=== PATIENT | female | born 1945 | race African-American/Black ===

== ENCOUNTER 2018-11-12 02:14 | Inpatient (IN) | payer BC, MEDICARE ==
[2018-11-12 04:18] LABS: Troponin I 0.084 ng/mL (< 0.028)
[2018-11-12] MEDS ORDERED: Ondansetron ODT 4 MG TAB SL PRN (05:23)
[2018-11-12] MEDS ORDERED: Ondansetron PF 4 MG/2 ML Vial IVP PRN (05:23)
[2018-11-12 06:10] VITALS: BMI 34.1
[2018-11-12 07:31] LABS: Troponin I 0.094 ng/mL (< 0.028)
[2018-11-12] MEDS ORDERED: Bisacodyl 10 MG SUPP PR PRN (09:01)
[2018-11-12] MEDS ORDERED: Acetaminophen 325 MG TAB PO PRN (09:01)
[2018-11-12] MEDS ORDERED: Furosemide 40 MG/4 ML VIAL SLOW IVP SCH (09:15)
--- NOTE | 2018-11-12 13:14 | HP ---
PRIMARY CARE PROVIDER: Chio Stallings at [facility]. CHIEF COMPLAINT: Shortness of breath. HISTORY OF PRESENT ILLNESS: Ms. Aaron is a pleasant 73-year-old lady, who was seen at [facility] on November 12, 2018. She was transferred from [place] [facility]. She reports that she has been feeling short of breath over the last few months. She reports orthopnea and paroxysmal nocturnal dyspnea. She also reports shortness of breath with exertion. She denies any chest pain. She denies any nausea or vomiting. She also reports lower extremity edema over the last 2 months. She reports that she checks her blood pressure at home. She found that it was high, 233/107 yesterday. Therefore, she presented to the emergency room at [place]. There, she was diagnosed with congestive heart failure/volume overload and transferred for admission to [facility]. REVIEW OF SYSTEMS: All other systems reviewed and found to be negative. PAST MEDICAL HISTORY: Hypertension; chronic kidney disease; the patient had AV fistula placed in the right upper extremity in 2017 or December, but has not gone on dialysis; breast cancer; gout; and anemia. PAST SURGICAL HISTORY: Left-sided mastectomy, breast reconstruction surgery, Port-A-Cath placement, and dialysis fistula placement. SOCIAL HISTORY: The patient denies tobacco use, alcohol use, or recreational drug use. She lives by herself. She does not use any mobility aids. FAMILY HISTORY: No family history of coronary artery disease. CODE STATUS: I discussed her code status. She is full code. ALLERGIES: NO KNOWN DRUG ALLERGIES. CURRENT MEDICATIONS: 1. Allopurinol 300 mg daily. 2. Coreg 25 mg 2 times a day. 3. Clonidine 0.3 mg 3 times a day. 4. Lasix 160 mg 2 times a day. 5. Hydralazine 100 mg 3 times a day. 6. Potassium chloride 20 mEq daily. PHYSICAL EXAMINATION: GENERAL: On examination, Ms. Aaron is awake and alert, not in acute distress. VITAL SIGNS: Blood pressure is 160/83, pulse 85, respiratory rate 18, and oxygen saturation 95% on room air. She is afebrile. EYES: No scleral icterus, no conjunctival pallor. ENT: Moist mucosal membranes. No oropharyngeal erythema or exudates. NECK: Supple and nontender. Trachea is midline. She has jugular venous distention. RESPIRATORY: Accessory muscles of breathing are not active. Chest wall movements are symmetric bilaterally. LUNGS: Examination reveals bibasilar crackles. CARDIOVASCULAR: S1 and S2 are heard, regular. Peripheral pulses palpable. No carotid bruit. No pericardial rub. ABDOMEN: Soft and nontender. Bowel sounds heard. No hepatomegaly. No splenomegaly. NEUROLOGIC: Cranial nerves 2 through 12 intact, deep tendon reflexes 2+. MUSCULOSKELETAL: Power is 5/5 in all 4 extremities. SKIN: No rashes or subcutaneous nodules. EXTREMITIES: She has bilateral lower extremity edema. LYMPHATIC: No cervical lymphadenopathy. PSYCHIATRIC: Normal mood. Normal affect. The patient is oriented to person, place, and time. LABORATORY DATA: Ms. Aaron's labs and investigations were reviewed. Chest x-ray showed cardiomegaly and small left-sided pleural effusion. She has normal white count, normocytic anemia with hemoglobin 8.6, normal platelet count, elevated sodium of 147, normal potassium, elevated blood urea nitrogen of 73, elevated creatinine of 4.45, baseline creatinine unknown, normal calcium, normal total bilirubin, elevated AST of 36, normal ALT, normal alkaline phosphatase, elevated CK of 193, and indeterminate troponin I of 0.094. BNP is elevated at 1952. ASSESSMENT AND PLAN: Ms. Aaron is a pleasant 73-year-old lady, who was seen at [facility] on November 12, 2018. Her problem list includes: 1. Shortness of breath: Most likely secondary to a combination of heart failure exacerbation and volume overload secondary to chronic kidney disease. She will be admitted to the hospital. We will start her on intravenous furosemide. We will check 2D echocardiogram. We will consult Nephrology and Cardiology Services for opinion and help with management. 2. Hypernatremia: Mild, we will recheck sodium level. 3. Chronic kidney disease stage 5: We will consult Nephrology for opinion and help with management. We will recheck creatinine level, especially since she will be receiving diuretics. 4. Rhabdomyolysis: Mild, recheck CK level. 5. Hypertensive urgency: This has resolved. Monitor vital signs and titrate antihypertensives as needed. 6. Anemia: The patient reports taking iron injections. We will resume once the medication is clarified. 7. Gout: Stable, continue allopurinol. Many thanks for allowing me to participate in your patient's care. Please feel free to contact me with any questions or concerns. LEVEL OF RISK: Moderate. LEVEL OF COMPLEXITY: Moderate. Job ID: [id number]
--- NOTE | 2018-11-12 13:57 | CON ---
DATE OF CONSULTATION: 11/12/2018 CONSULTING PHYSICIAN: Dr. Stone. REASON FOR CONSULTATION: HISTORY OF PRESENT ILLNESS: A 73-year-old female with history of osteoarthritis, hypertension, and chronic kidney disease stage 5, came to the hospital with fluid overload and not feeling well. She is followed by [facility] and last seen him few weeks back. On that time, her creatinine was 4.6 with GI followup planned and she is admitted to [facility] with a creatinine of 4.4 and a GFR of 12. The patient complains of high blood pressure at home and mild edema. She complaints of orthopnea and shortness of breath at exertion. She is not hypoxic at this point. PAST MEDICAL HISTORY: Positive for osteoarthritis, gout, essential hypertension, chronic kidney disease stage 5, insomnia, and breast cancer. PAST SURGICAL HISTORY: Mastectomy and fistula placement. HOME MEDICATIONS: Includes; 1. Clonidine. 2. Allopurinol. 3. Carvedilol. 4. Potassium. 5. Hydralazine. 6. Lasix. ALLERGIES: NO KNOWN DRUG ALLERGIES. SOCIAL HISTORY: No smoking, alcohol, or illicit drug abuse. FAMILY HISTORY: Positive for hyperlipidemia. REVIEW OF SYSTEMS: CONSTITUTIONAL: Negative for weight loss or gain, ability to conduct usual activities. SKIN: Negative for rash, itching. EYES: Negative for double vision, pain. ENT/MOUTH: Negative for nose bleeding, neck stiffness, pain, tenderness. CARDIOVASCULAR: Negative for palpitations, dyspnea on exertion, orthopnea. RESPIRATORY: Negative for shortness of breath, wheezing, cough, hemoptysis, fever or night sweats. GASTROINTESTINAL: Negative for poor appetite, abdominal pain, heartburn, nausea, vomiting, constipation, or diarrhea. GENITOURINARY: Negative for urgency, frequency, dysuria, nocturia. MUSCULOSKELETAL: Negative for pain, swelling. NEUROLOGIC/PSYCHIATRIC: Negative for anxiety, depression. ALLERGY/IMMUNOLOGIC: Negative for skin rash, bleeding tendency. Rest all negative. PHYSICAL EXAMINATION: GENERAL: Reveals a well-built female, in no apparent distress. VITAL SIGNS: Temperature . HEENT: Atraumatic, normocephalic. Oral mucosa is moist. NECK: Supple. CV: S1 and S2 heard. Rate and rhythm regular. RESPIRATORY: Clear. GI: Abdomen is soft. MUSCULOSKELETAL: 1+ edema. DERMATOLOGIC: No skin rash. NEUROLOGIC: Alert and awake. PSYCHIATRIC: Mood and affect normal. LABORATORY DATA: Hemoglobin is 8.6. Potassium 4.3, BUN is 73, and creatinine is 4.1. ASSESSMENT AND PLAN: 1. Chronic kidney disease stage 5 with acute kidney injury. Agree with diuretics with close monitoring. 2. Edema, most likely from renal failure. 3. . 4. Elevated BNP. 5. Hypoalbuminemia. 6. Hypertension. Titrate medication and fluid removal and limit solid and fluid intake. 7. Anemia most likely from chronic disease. . Plan to continue on diuretics. No acute indication for dialysis. We will follow. Old records reviewed from [facility]. We will follow. Job ID: [id number]
[2018-11-12] MEDS ORDERED: Furosemide 20 MG/2 ML VIAL SLOW IVP SCH (14:00)
[2018-11-12] MEDS: Heparin 5,000 UNITS/ML VIAL SC SCH ×2 (14:58→20:18)
[2018-11-12] MEDS: cloNIDine 0.3 MG TAB PO SCH ×2 (15:00→20:18)
[2018-11-12] MEDS: Furosemide 40 MG/4 ML VIAL SLOW IVP SCH (15:00)
[2018-11-12] MEDS: hydrALAZINE 25 MG TAB PO SCH ×2 (15:10→20:18)
--- NOTE | 2018-11-12 16:45 | CON ---
DATE OF CONSULTATION: REASON FOR CONSULTATION: Congestive heart failure. HISTORY OF PRESENT ILLNESS: Ms. Aaron is a 73-year-old woman with a history of advanced chronic kidney disease, who recently presented with markedly elevated blood pressure of 230s. No chest pain or pressure noted. No other ameliorating, exacerbating, or precipitating factors present. She has a history of chronic kidney disease and has been followed by Dr. Godwin. She has no previous history of underlying coronary artery disease. PAST MEDICAL HISTORY: Mastectomy, breast reconstruction, dialysis fistula. FAMILY HISTORY: Negative for CAD. ALLERGIES: NONE. HOME MEDICATIONS: 1. Allopurinol. 2. Coreg. 3. Clonidine. 4. Lasix. 5. Hydralazine. 6. Potassium. REVIEW OF SYSTEMS: A 10-point review of systems is reviewed as above, otherwise negative. PHYSICAL EXAMINATION: GENERAL: The patient is a pleasant female, who is in no acute distress. The patient appears her stated age. VITAL SIGNS: Blood pressure 187/81, pulse 85, temperature 97.9. NEUROLOGIC: The patient is alert and oriented x3 with no focal neurologic deficits. HEENT: Sclerae without icterus. Mouth has moist mucous membranes with normal pallor. NECK: No JVD. Carotid upstroke brisk. No bruits bilaterally. LUNGS: Clear to auscultation with unlabored respirations. BACK: No scoliosis or kyphosis. CARDIAC: Regular rate and rhythm with normal S1 and S2. No S3 or S4 noted. No significant rubs, murmurs, thrills, or gallops noted throughout the precordium. PMI is not displaced. There is no parasternal heave. ABDOMEN: Soft, nontender, nondistended. No peritoneal signs present. No hepatosplenomegaly. No abnormal striae. EXTREMITIES: 2+ femoral and 2+ dorsalis pedis pulses. No cyanosis, clubbing, or edema. SKIN: No gross abnormalities. LABORATORY DATA: Peak troponin 0.094. Creatinine 4.45. BUN 73. Sodium 147. CK-MB of 2.2. BNP of 1952. IMPRESSION: 1. Congestive heart failure? 2. Elevated BNP. 3. Advanced chronic kidney disease. 4. Malignant hypertension. RECOMMENDATIONS: Ms. Aaron's symptoms are all likely related to underlying chronic kidney disease. She certainly likely has a component of diastolic dysfunction and may have systolic dysfunction. We will assess via echocardiogram . Her markedly elevated blood pressure, increased creatinine, and fluid retention can all be related to her underlying kidney disease. We will defer any changes in blood pressure management to Dr. Godwin. We will review her echocardiogram and make recommendations. If her LVEF does appear normal, we would therefore recommend continued medical therapy, aggressive blood pressure control, and recommendations on dialysis per Dr. Godwin. Job ID: [id number]
[2018-11-12] MEDS: Carvedilol 25 MG TAB PO SCH (20:18)
[2018-11-13] MEDS: Furosemide 40 MG/4 ML VIAL SLOW IVP SCH ×2 (05:44→14:16)
[2018-11-13 05:58] LABS: #Eosinphils 0.2 thou/uL (0.0-0.7); #Lymphocytes 1.6 thou/uL (1.20-3.40); #Monocytes 0.5 thou/uL (0.11-0.59); #Neutrophils 3.9 thou/uL (1.40-6.50); %Basophils 0.5 % (0.0-1.0); %Eosinophils 2.8 % (0.0-10.0); %Lymphocytes 25.6 % (21.0-51.0); %Monocytes 8.2 % (0.0-10.0); %Neutrophils 62.8 % (42.0-75.0); Hemoglobin 7.5 g/dL (12.0-16.0); Mean Corpuscular HGB CONC 30.7 g/dL (32.0-36.0); Mean Corpuscular Hemoglobin 29.8 pg (27.0-31.0); Mean Corpuscular Volume 97.1 fL (78.0-98.0); Mean Platelet Volume 9.1 fL (7.4-10.4); Platelet Count 150 thou/uL (130-400); Red Blood Cell (RBC) Count 2.52 mill/uL (4.20-5.40); White Blood Cell (WBC) Count 6.2 thou/uL (4.8-10.8)
[2018-11-13 06:15] LABS: Anion Gap 16 mmol/L (10-20); BUN (Urea Nitrogen) 68 mg/dL (9.8-20.1); CK (CPK) 85 U/L (29-168); Calc. Creatinine Clearance 17 mL/min (70-130); Carbon Dioxide 26 mmol/L (23-31); Chloride 107 mmol/L (98-107); Estimated GFR-MDRD 12; Glucose 102 mg/dL (83-110); Sodium 146 mmol/L (136-145)
[2018-11-13 06:20] LABS: Potassium 2.9 mmol/L (3.5-5.1)
[2018-11-13] MEDS ORDERED: Potassium Chloride 20 MEQ TAB PO SCH ×2 (07:00→08:00)
[2018-11-13] MEDS: hydrALAZINE 25 MG TAB PO SCH ×3 (08:09→20:04)
[2018-11-13] MEDS: cloNIDine 0.3 MG TAB PO SCH ×3 (08:15→20:03)
[2018-11-13] MEDS: Carvedilol 25 MG TAB PO SCH ×2 (08:15→20:03)
[2018-11-13] MEDS: Heparin 5,000 UNITS/ML VIAL SC SCH ×3 (08:16→20:04)
[2018-11-13] MEDS: Allopurinol 300 MG TAB PO SCH (08:16)
--- NOTE | 2018-11-13 08:36 | PDOC.PN ---
- Subjective Encounter Start Date: 11/13/18 Encounter Start Time: 10:30 Subjective: Patient reports SOB resolved. Swelling better in upper and lower -: extremities. No chest pain. - Objective Resuscitation Status - Order Detail: 11/12/18 09:01 Resuscitation Status Routine Resuscitation Status: FULL: Full Resuscitation Discussed with: patient PREMA Reviewed: Yes Vital Signs & Weight: Vital Signs (12 hours) Temp Pulse Resp BP BP Pulse Ox 11/13/18 08:15 134/60 11/13/18 08:09 74 134/60 11/13/18 07:38 97.9 F 74 18 134/60 93 L 11/13/18 04:00 97.7 F 80 18 132/56 L 96 11/12/18 23:51 97.8 F 75 18 133/54 L 96 Weight Weight 198 lb 11.2 oz I&O: 11/12/18 11/13/18 11/14/18 06:59 06:59 06:59 Intake Total 480 Output Total 950 Balance -470 Result Diagrams: 11/13/18 05:28 11/13/18 05:28 Phys Exam - Physical Examination Constitutional: NAD HEENT: moist MMs Respiratory: no wheezing, no rales, no rhonchi Cardiovascular: RRR, no significant murmur Gastrointestinal: soft, positive bowel sounds mild edema in upper and lower extremities Neurological: non-focal Psychiatric: normal affect, A&O x 3 Dx/Plan (1) Hypertensive urgency Code(s): I16.0 - HYPERTENSIVE URGENCY Status: Resolved (2) Chronic renal failure, stage 5 Code(s): N18.5 - CHRONIC KIDNEY DISEASE, STAGE 5 Status: Acute (3) Volume overload Code(s): E87.70 - FLUID OVERLOAD, UNSPECIFIED Status: Acute Comment: improved with Lasix diuresis (4) Elevated brain natriuretic peptide (BNP) level Code(s): R79.89 - OTHER SPECIFIED ABNORMAL FINDINGS OF BLOOD CHEMISTRY Status : Acute Comment: likely due to volume overload and CRF, checking ECHO to rule out CHF (5) Hypokalemia Code(s): E87.6 - HYPOKALEMIA Status: Acute Comment: replacing orally (6) Anemia in chronic kidney disease (CKD) Code(s): N18.9 - CHRONIC KIDNEY DISEASE, UNSPECIFIED; D63.1 - ANEMIA IN CHRONIC KIDNEY DISEASE Status: Chronic Qualifiers: Chronic kidney disease stage: stage 5, not on chronic dialysis Qualified Code(s): N18.5 - Chronic kidney disease, stage 5; D63.1 - Anemia in chronic kidney disease (7) Gout Code(s): M10.9 - GOUT, UNSPECIFIED Status: Chronic - Plan cont current plan of care, out of bed/ambulate, DVT proph w/heparin continue diuresis * . - Discharge Day Encounter end time: 10:45
--- NOTE | 2018-11-13 09:34 | PRG ---
DATE OF SERVICE: 11/13/2018 SUBJECTIVE: Patient was seen and examined at bedside and overnight events noted. Patient denies any shortness of breath or chest pain or palpitation. No history of nausea or vomiting or diarrhea or fever or chills or cramps. OBJECTIVE: GENERAL: This is a well built female in no apparent distress. VITAL SIGNS: Temperature 97.9. Pulse 74. Respiratory rate 18. Blood pressure 134/60. HEENT: Atraumatic, normocephalic. Oral mucosa is moist NECK: Supple. CARDIOVASCULAR: S1, S2 heard. Rate and rhythm regular. RESPIRATORY: Clear to auscultation. GASTROINTESTINAL: Abdomen is soft. MUSCULOSKELETAL: No tenderness. No edema. DERMATOLOGIC: No skin rash. NEUROLOGIC: Alert and awake and oriented X3. No focal neurologic deficits. Moving all the extremities. PSYCHIATRIC: Mood and affect normal. LABORATORY DATA: Potassium is 2.9, BUN is 68, creatinine is . ASSESSMENT AND PLAN: 1. Acute kidney injury on chronic kidney stage 5. Renal function is stable. 2. Hypertension, better. 3. Hypokalemia. Check renin-aldosterone level and replace potassium. 4. Edema. 5. Anemia of chronic disease. 6. Okay to discharge from Nephrology status. Followup with Dr. Tavares at [facility] [place]. We will continue to follow. Agree with Cardiology evaluation. Job ID: [id number]
--- NOTE | 2018-11-13 18:45 | PDOC.CTH ---
Cardiology Progress Note - Subjective Feels better overall. NO changes. EF nromal on recent echo - Objective Vital Signs Temp Pulse Resp BP BP Pulse Ox 11/13/18 15:57 70 146/69 H 11/13/18 15:56 146/69 H 11/13/18 15:42 97.9 F 70 16 146/69 H 95 11/13/18 11:56 98.0 F 72 16 136/70 95 11/13/18 08:15 134/60 11/13/18 08:09 74 134/60 11/13/18 07:58 93 L 11/13/18 07:38 97.9 F 74 18 134/60 93 L Weight 198 lb 11.2 oz 11/12/18 11/13/18 11/14/18 06:59 06:59 06:59 Intake Total 480 680 Output Total 950 Balance -470 680 - Physical Examination General/Neuro: alert & oriented x3, NAD Lungs: CTA, unlabored respirations Abdomen: NT/ND, soft Extremities: + femoral B - Labs Result Diagrams: 11/13/18 05:28 11/13/18 05:28 Troponin/CKMB Troponin I 0.094 ng/mL (< 0.028) H 11/12/18 07:00 - Assessment/Plan Chronic diastolic heart failure anemia Chronic kidney disease EF normal on recent echo Increase in SOB secondary to CKD and diastolic dysfunction Pt also with increase in BP Defer treatment of HTN to nephrology No other recommendations fu in 3-4 weeks in office
[2018-11-14] MEDS: Furosemide 40 MG/4 ML VIAL SLOW IVP SCH (05:58)
[2018-11-14 06:17] LABS: #Eosinphils 0.2 thou/uL (0.0-0.7); #Lymphocytes 1.4 thou/uL (1.20-3.40); #Monocytes 0.4 thou/uL (0.11-0.59); #Neutrophils 3.2 thou/uL (1.40-6.50); %Basophils 0.3 % (0.0-1.0); %Eosinophils 3.6 % (0.0-10.0); %Lymphocytes 26.5 % (21.0-51.0); %Monocytes 7.3 % (0.0-10.0); %Neutrophils 62.4 % (42.0-75.0); Hemoglobin 7.9 g/dL (12.0-16.0); Mean Corpuscular HGB CONC 30.3 g/dL (32.0-36.0); Mean Corpuscular Hemoglobin 29.4 pg (27.0-31.0); Mean Platelet Volume 8.8 fL (7.4-10.4); Platelet Count 147 thou/uL (130-400); RBC Distribution Width 17.9 % (11.5-14.5); Red Blood Cell (RBC) Count 2.68 mill/uL (4.20-5.40); White Blood Cell (WBC) Count 5.2 thou/uL (4.8-10.8)
[2018-11-14 06:45] LABS: Anion Gap 14 mmol/L (10-20); BUN (Urea Nitrogen) 69 mg/dL (9.8-20.1); Calc. Creatinine Clearance 18 mL/min (70-130); Calcium 9.4 mg/dL (7.8-10.44); Carbon Dioxide 26 mmol/L (23-31); Chloride 108 mmol/L (98-107); Estimated GFR-MDRD 13; Glucose 113 mg/dL (83-110); Potassium 3.3 mmol/L (3.5-5.1); Sodium 145 mmol/L (136-145)
[2018-11-14 08:08] VITALS: BP 140/60; TEMP 97.6
[2018-11-14] MEDS: Heparin 5,000 UNITS/ML VIAL SC SCH (08:10)
[2018-11-14] MEDS: Carvedilol 25 MG TAB PO SCH (08:11)
[2018-11-14] MEDS: cloNIDine 0.3 MG TAB PO SCH (08:11)
[2018-11-14] MEDS: hydrALAZINE 25 MG TAB PO SCH (08:11)
[2018-11-14] MEDS: Allopurinol 300 MG TAB PO SCH (08:12)
[2018-11-14] MEDS ORDERED: Potassium Chloride 20 MEQ TAB PO SCH (08:40)
--- NOTE | 2018-11-14 08:42 | PDOC.PN ---
- Subjective Encounter Start Date: 11/14/18 Encounter Start Time: 11:00 Subjective: Patient feeling much better. No SOB. Swelling improved. Ready to -: go home. - Objective Resuscitation Status - Order Detail: 11/12/18 09:01 Resuscitation Status Routine Resuscitation Status: FULL: Full Resuscitation Discussed with: kelle LLOYD Reviewed: Yes Vital Signs & Weight: Vital Signs (12 hours) Temp Pulse Resp BP BP BP Pulse Ox 11/14/18 08:11 65 140/60 11/14/18 08:00 97.6 F 65 16 140/60 98 11/14/18 03:11 97.4 F L 73 20 135/60 96 11/13/18 23:07 97.4 F L 70 20 133/63 93 L Weight Weight 205 lb 1.6 oz I&O: 11/13/18 11/14/18 11/15/18 06:59 06:59 06:59 Intake Total 480 1165 Output Total 950 Balance -470 1165 Result Diagrams: 11/14/18 05:59 11/14/18 05:59 Phys Exam - Physical Examination Constitutional: NAD HEENT: moist MMs Respiratory: no wheezing, no rales, no rhonchi Cardiovascular: RRR, no significant murmur Gastrointestinal: soft, non-tender, positive bowel sounds diffuse, upper and lower extremity, mild non-pitting edema Neurological: non-focal Psychiatric: normal affect, A&O x 3 Dx/Plan (1) Hypertensive urgency Code(s): I16.0 - HYPERTENSIVE URGENCY Status: Resolved (2) Chronic renal failure, stage 5 Code(s): N18.5 - CHRONIC KIDNEY DISEASE, STAGE 5 Status: Acute (3) Volume overload Code(s): E87.70 - FLUID OVERLOAD, UNSPECIFIED Status: Acute Comment: improved with Lasix diuresis (4) Elevated brain natriuretic peptide (BNP) level Code(s): R79.89 - OTHER SPECIFIED ABNORMAL FINDINGS OF BLOOD CHEMISTRY Status : Acute Comment: likely due to volume overload and CRF, checking ECHO to rule out CHF (5) Hypokalemia Code(s): E87.6 - HYPOKALEMIA Status: Acute Comment: replacing orally (6) Anemia in chronic kidney disease (CKD) Code(s): N18.9 - CHRONIC KIDNEY DISEASE, UNSPECIFIED; D63.1 - ANEMIA IN CHRONIC KIDNEY DISEASE Status: Chronic Qualifiers: Chronic kidney disease stage: stage 5, not on chronic dialysis Qualified Code(s): N18.5 - Chronic kidney disease, stage 5; D63.1 - Anemia in chronic kidney disease (7) Gout Code(s): M10.9 - GOUT, UNSPECIFIED Status: Chronic - Plan cont current plan of care, out of bed/ambulate, DVT proph w/heparin d/c home, resume home lasix and potassium, f/u with outpatient -: lapel padder blindstitch in 1 week to recheck lab, fluid restriction 1 liter per day * . - Discharge Day Encounter end time: 11:20
[2018-11-14] MEDS ORDERED: Furosemide 20 MG TAB PO SCH (09:00)
--- NOTE | 2018-11-14 10:43 | PRG ---
DATE OF SERVICE: 11/14/2018 SUBJECTIVE: Patient was seen and examined at bedside and overnight events noted. Patient denies any shortness of breath or chest pain or palpitation. No history of nausea or vomiting or diarrhea or fever or chills or cramps. OBJECTIVE: GENERAL: This is a well built female in no apparent distress. VITAL SIGNS: Temperature 97.6. Pulse 65. Respiratory rate 16. Blood pressure 140/60. HEENT: Atraumatic, normocephalic. Oral mucosa is moist NECK: Supple. CARDIOVASCULAR: S1, S2 heard. Rate and rhythm regular. RESPIRATORY: Clear to auscultation. GASTROINTESTINAL: Abdomen is soft. MUSCULOSKELETAL: No tenderness. No edema. DERMATOLOGIC: No skin rash. NEUROLOGIC: Alert and awake and oriented X3. No focal neurologic deficits. Moving all the extremities. PSYCHIATRIC: Mood and affect normal. LABORATORY DATA: Potassium is 3.3, BUN is 69, and creatinine is 4.1. ASSESSMENT AND PLAN: 1. Acute kidney injury on chronic kidney disease stage 5, stable. 2. Edema, controlled. 3. Hypokalemia. 4. Hypertension. 5. Anemia. 6. Renal function is stable. Okay to discharge home. Monitor potassium closely. The patient can follow with her primary manager quality, Dr. Tavares at [facility]. We will follow as needed. Job ID: [id number]
--- NOTE | 2018-11-15 00:30 | DIS ---
DATE OF ADMISSION: 11/12/2018 DATE OF DISCHARGE: 11/14/2018 PRIMARY CARE PHYSICIAN: Emily Stallings at [facility]. REASON FOR ADMISSION: Volume overload from chronic kidney disease and hypertensive urgency. DIAGNOSES AT DISCHARGE: 1. Hypertensive urgency, resolved. 2. Volume overload, resolved. 3. Chronic renal failure stage 5. 4. Elevated brain natriuretic peptide within normal echocardiogram. 5. Hypokalemia. 6. Anemia of chronic kidney disease. 7. Gout. PROCEDURES: Echocardiogram showing normal ejection fraction per 's report. CONSULTATIONS: 1. Nephrology, Dr. Godwin. 2. Cardiology, . SUMMARY OF HOSPITAL COURSE: This is a 73-year-old female with a history of chronic renal failure stage 5. She reports increasing shortness of breath for the last few months, orthopnea and paroxysmal nocturnal dyspnea, shortness of breath with exertion, also increased lower extremity edema over the last 2 months. She found her blood pressure very high at home over 200, so went to the emergency room in [place]. She was noted to have volume overload, transferred to [facility]. The patient was given IV Lasix with good diuresis and resolution of her hypertensive emergency and shortness of breath and orthopnea. Her creatinine remained stable during her hospitalization. She did have an elevated brain natriuretic peptide. An echocardiogram was done that was normal. The patient has been ambulating well, feels back to her baseline, is being discharged home. DISCHARGE MANAGEMENT: Discharged home. ACTIVITY: As tolerated. DIET: Renal diet with low sodium and fluid restriction of 1 L per day. THERAPY: Outpatient cardiac rehab. FOLLOWUP: Follow up with her outpatient crossing guard in 1 week to recheck labs, with in 3 to 4 weeks. DISCHARGE MEDICATIONS: 1. Allopurinol 300 mg daily. 2. Carvedilol 25 mg twice a day. 3. Clonidine 0.3 mg 3 times a day. 4. Hydralazine 100 mg 3 times a day. 5. Furosemide 160 mg twice a day. 6. Potassium chloride 20 mEq daily. TIME SPENT: Arranging the details of this discharge took 32 minutes. Job ID: [id number]
== END 2018-11-14 13:28 | disposition home or self-care (01) | DRG 641 ==
LOC: ERS 02:14 → 2SE 03:32
PROVIDERS: ADMIT Hospitalist; ATTEND Hospitalist
DX: E87.70 Fluid overload, unspecified (principal); M62.82 Rhabdomyolysis; N17.9 Acute kidney failure, unspecified; N18.5 Chronic kidney disease, stage 5; I12.0 Hypertensive chronic kidney disease with stage 5 chronic kidney disease or end stage renal disease; I16.0 Hypertensive urgency; E87.0 Hyperosmolality and hypernatremia; M10.9 Gout, unspecified; D63.1 Anemia in chronic kidney disease; E87.6 Hypokalemia; R79.89 Other specified abnormal findings of blood chemistry; Z85.3 Personal history of malignant neoplasm of breast; Z79.899 Other long term (current) drug therapy
CPT/HCPCS: 36415; 80048; 82088; 82550; 84244; 84484; 85025; 93306; 93798; J1644; J1940

== ENCOUNTER 2019-02-28 12:51 | Inpatient (IN) | payer BC, MEDICARE ==
--- NOTE | 2019-02-28 14:00 | CT ---
CT Brain WO Con HISTORY: Fall with head injury. COMPARISON: None. FINDINGS: The ventricular and cisternal system shows fairly age-appropriate change. There are no sign s of intracerebral hemorrhage or extra-axial fluid collections the mastoid air cells and visualized sinuses small posterior scalp hematoma is noted. No underlying fracture IMPRESSION: No acute intracranial abnormalities.
--- NOTE | 2019-02-28 14:02 | CT ---
CT Cervical Spine WO Con HISTORY: Fall with neck injury COMPARISON: None. FINDINGS: The vertebral bodies are normal in height. Small osteophytes are seen along the course of t he spine without disc narrowing. The facets are in normal alignment. There is no evidence of canal or foraminal stenosis. A right-sided Mediport catheter is present. The right jugular vein is somewhat distended The lung apices are clear. IMPRESSION: No CT evidence of fracture the cervical spine.
[2019-02-28 19:20] LABS: HBSAB Concentration 1.36 mIU/mL; HBSAg Index 0.19 S/CO (0-0.99); Hep B Core Total Ab Non-Reactive (NonReactive); Hep B Core Total Index 0.07 S/CO (0-0.79); Hep B Surf AB Non-Reactive (NonReactive); Hep B Surf Ag Non-Reactive S/CO (NonReactive); Hep C IgG Ab Non-Reactive (NonReactive); Hep C Index 0.08 S/CO (0-0.79)
[2019-02-28] MEDS ORDERED: Acetaminophen 325 MG TAB PO PRN (21:38)
[2019-02-28] MEDS ORDERED: Ondansetron PF 4 MG/2 ML Vial IVP PRN (21:38)
[2019-02-28 21:51] VITALS: BMI 33.5
--- NOTE | 2019-02-28 22:35 | HP ---
PRIMARY CARE PHYSICIAN: Elba Rizo in [place]. CHIEF COMPLAINT: Status post fall. REASON FOR ADMISSION: Volume overload/anasarca/initiation of hemodialysis. HISTORY OF PRESENT ILLNESS: The patient is a very pleasant 73-year-old female with past medical history significant for stage 4 chronic kidney disease followed by Dr. Grant, anemia of chronic disease, hypertension, who presented to the emergency room in [place] after suffering from a mechanical fall. 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 She fell backwards on the occipital portion of her head. There was no loss of consciousness. There was no other injury. Her friend took her to the [facility] for further evaluation. The patient did have some lab work drawn there, which was significant for BNP of over 3000. Her creatinine was 4.56 and sodium was 148. The patient was transferred to our facility for CT scan and higher level of care. On arrival to our facility, brain CT showed a small occipital hematoma and no acute intracranial abnormality. Her CT scan of the cervical spine was also negative. Given the patient's evidence of volume overload per blood work and creatinine, Dr. Grant recommended admission for initiation of hemodialysis. The patient has reported swelling in her arms and legs, which has been ongoing. She has been teetering on the cusp of needing hemodialysis, and in fact has had an AV fistula placed last year which has since matured. She has not required dialysis up until this point. At the time of my interview with the patient, she is undergoing hemodialysis and tolerating this well. The patient has noted no chest pain or shortness of breath. She has had no orthopnea. She has been able to continue all of her daily activities and work outside of the home. REVIEW OF SYSTEMS: A 12-point review of systems performed and is negative except that stated above. ALLERGIES: NO KNOWN DRUG ALLERGIES. HOME MEDICATIONS: 1. Allopurinol 300 mg p.o. daily. 2. Calcium acetate one tablet p.o. t.i.d. with meals. 3. Carvedilol 25 mg p.o. t.i.d. 4. Clonidine 0.3 mg p.o. t.i.d. 5. Hydralazine 100 mg p.o. t.i.d. PAST MEDICAL HISTORY: 1. Hypertensive nephropathy/end-stage renal disease followed by Dr. Grant. 2. Hypertension. 3. Gout. 4. Anemia of chronic disease. 5. Valvular heart disease including mild to moderate mitral regurgitation and severe tricuspid regurgitation. 6. Breast cancer status post mastectomy, chemo and radiation. PAST SURGICAL HISTORY: Left-sided mastectomy, breast reconstruction, Port-A-Cath placement, AV fistula. SOCIAL HISTORY: The patient lives in [place] with one of her grandchildren. She denies any alcohol, smoking, or illicit drug use. As mentioned, she works in the kitchen at [employer]. She performs all of her own ADLs. FAMILY HISTORY: Positive for hypertension. There is no family history of coronary artery disease, diabetes, or stroke. CODE STATUS: Full code. PHYSICAL EXAMINATION: VITAL SIGNS: Blood pressure 173/91, pulse is 73, O2 saturation is 100% on room air, respirations 18. GENERAL: The patient is an elderly female, currently undergoing dialysis, resting comfortably, in no acute distress. HEENT: Head is atraumatic and normocephalic. Mucous membranes are moist. NECK: Trachea is midline. Mild JVD present. CV: S1 and S2. Regular rate and rhythm. Systolic murmur grade 2/6. LUNGS: Regular respiratory rate and pattern, occasional faint crackle noted. ABDOMEN: Positive bowel sounds. Soft, nontender. Mildly obese. EXTREMITIES: The patient does have +3 pitting edema to both lower extremities and upper extremities consistent with anasarca. NEUROLOGIC: Cranial nerves 2 through 12 are grossly intact. The patient is nonfocal. Alert and oriented x3 with appropriate affect. LABORATORY DATA: All reviewed from the [facility]. BNP was 3063. Glucose 130, BUN 119, creatinine 4.56, sodium 148, potassium 3.7, chloride 111, albumin 3.1, magnesium 2.0, hemoglobin 7.5, platelet count 122. ASSESSMENT: 1. Volume overload/anasarca secondary to end-stage renal disease. 2. Hypertensive nephropathy/end-stage renal disease, now on hemodialysis, which was initiated today. 3. Status post mechanical fall earlier in the day, resulting in small posterior occipital hematoma, CT scans negative for any significant injury. 4. Hypertension. 5. Anemia of chronic disease. 6. Gout/stable. PLAN: At this time, we will follow Dr. Grant's recommendations regarding initiation of hemodialysis. The patient underwent 2 hours today and had 1.8 L of fluid removed. We will continue to monitor her blood pressure closely and titrate those antihypertensive as necessary. We will repeat a chemistry in the morning, as well as H and H. We will follow renal diet. Further recommendations based on hospital course. Job ID: [id number]
[2019-03-01 05:43] LABS: Anion Gap 16 mmol/L (10-20); BUN (Urea Nitrogen) 92 mg/dL (9.8-20.1); Calc. Creatinine Clearance 19 mL/min (70-130); Calcium 9.2 mg/dL (7.8-10.44); Carbon Dioxide 25 mmol/L (23-31); Chloride 106 mmol/L (98-107); Estimated GFR-MDRD 15; Glucose 100 mg/dL (83-110); Potassium 3.8 mmol/L (3.5-5.1); Sodium 143 mmol/L (136-145)
[2019-03-01 06:27] LABS: #Eosinphils 0.1 thou/uL (0.0-0.7); #Lymphocytes 1.2 thou/uL (1.20-3.40); #Monocytes 0.7 thou/uL (0.11-0.59); #Neutrophils 7.3 thou/uL (1.40-6.50); %Basophils 0.1 % (0.0-1.0); %Eosinophils 1.4 % (0.0-10.0); %Lymphocytes 13.1 % (21.0-51.0); %Monocytes 6.9 % (0.0-10.0); %Neutrophils 78.5 % (42.0-75.0); Hemoglobin 8.5 g/dL (12.0-16.0); MDiff Complete? YES; Mean Corpuscular HGB CONC 30.9 g/dL (32.0-36.0); Mean Corpuscular Hemoglobin 30.5 pg (27.0-31.0); Mean Corpuscular Volume 98.9 fL (78.0-98.0); Mean Platelet Volume 10.7 fL (7.4-10.4); Platelet Count 119 thou/uL (130-400); Platelet Morphology Comment Appears Decreased; RBC Distribution Width 18.8 % (11.5-14.5); Red Blood Cell (RBC) Count 2.77 mill/uL (4.20-5.40); Schistocytes SLIGHT = 2-5 cells (100X) (0-1/hpf); Tear Drops SLIGHT = 2-5 cells (100X) (0-1/hpf); White Blood Cell (WBC) Count 9.3 thou/uL (4.8-10.8)
--- NOTE | 2019-03-01 09:21 | CON ---
DATE OF CONSULTATION: 02/28/2019 TIME OF CONSULTATION: 4:00 p.m. REASON FOR CONSULTATION: Edema and elevated creatinine. HISTORY OF PRESENT ILLNESS: This is a very pleasant 73-year-old female, who presented to the hospital with possible head injury and also had generalized swelling. The patient denies no headache, numbness, tingling, or weakness. She has had more than 20 pounds weight gain. PAST MEDICAL HISTORY: Significant for CKD stage 5, hypertension, edema, congestive heart failure, occipital hematoma, AV fistula, and tunneled dialysis catheter. MEDICATIONS: Home medications list reviewed. Hospital medications list reviewed. ALLERGIES: REVIEWED. REVIEW OF SYSTEMS: Fifteen-point review of system was performed and negative except for positives noted above. GENERAL: HEAD: NECK: No swelling or lumps. NOSE: No epistaxis or discharge. EYES: No diplopia or pain. RESPIRATORY: CARDIOVASCULAR: GASTROINTESTINAL: /TELEVISION SERVICE ENGINEER: MUSCULOSKELETAL: No joint pain. NEUROPSYCHIATRIC SYSTEMS: No suicidal ideation. No ideation. SKIN: Denies any rash or ulcer. CONSTITUTIONAL: No fever or chills. PHYSICAL EXAMINATION: CONSTITUTIONAL: On examination, the patient is awake and alert. VITAL SIGNS: Afebrile, pulse 98, breathing 16, and blood pressure 163/55. GENERAL APPEARANCE AND MENTAL STATUS: Fair. HEAD/NECK: Normocephalic. Atraumatic. EYES: EOMI. No deformity. EARS: Clear. No ulcers. NOSE: Intact. No lesions. MOUTH: Clear. No discharge. THROAT: Clear. No exudate. LUNGS: Clear. No crackles. CARDIAC: S1, S2. No rub. ABDOMEN: Benign. Bowel sounds positive. GENITALIA/RECTUM: Castillo absent. BACK/EXTREMITIES: She has 4+ edema in the lower extremities. NEUROLOGICAL: Alert and motor intact. SKIN: LYMPHATICS: LABORATORY DATA: Reviewed. ASSESSMENT AND PLAN: 1. Chronic kidney disease, stage 6. Plan urgent dialysis. 2. Hypertension, stable. 3. Anemia, stable. 4. Medications based on glomerular filtration rate are appropriate. Job ID: [id number]
--- NOTE | 2019-03-01 10:09 | PRG ---
DATE OF SERVICE: 03/01/2019 SUBJECTIVE: This is a 73-year-old female, being seen for end-stage renal disease. The patient denied nausea, vomiting, or chest pain. OBJECTIVE: See above. GENERAL: The patient is awake, alert. VITAL SIGNS: Pulse 71, breathing 16, blood pressure 142/65. GENERAL APPEARANCE AND MENTAL STATUS: Fair. HEAD/NECK: Normocephalic. Atraumatic. EYES: EOMI. No deformity. EARS: Clear. No ulcers. NOSE: Intact. No lesions. MOUTH: Clear. No discharge. THROAT: Clear. No exudate. LUNGS: Clear. No crackles. CARDIAC: S1, S2. No rub. ABDOMEN: Benign. Bowel sounds positive. GENITALIA/RECTUM: Castillo absent. BACK/EXTREMITIES: Edema 0+. NEUROLOGICAL: Alert and motor intact. SKIN: LYMPHATICS: LABORATORY DATA: Labs reviewed. ASSESSMENT AND PLAN: 1. Stage 6 chronic kidney disease, on hemodialysis. 2. Hypertensive, stable. 3. Anemia, stable. 4. Edema, improving. Job ID: [id number]
[2019-03-01] MEDS: Allopurinol 300 MG TAB PO SCH (11:25)
[2019-03-01] MEDS: Calcium Acetate 667 MG CAP PO SCH ×3 (11:25→16:40)
[2019-03-01] MEDS: hydrALAZINE 25 MG TAB PO SCH ×3 (11:26→20:16)
[2019-03-01] MEDS: cloNIDine 0.3 MG TAB PO SCH ×3 (11:26→20:16)
[2019-03-01] MEDS: Carvedilol 25 MG TAB PO SCH ×2 (11:26→20:16)
[2019-03-01] MEDS ORDERED: cloNIDine 0.1 MG TAB PO PRN (11:46)
--- NOTE | 2019-03-01 23:37 | PDOC.HOSPP ---
- Subjective Encounter Date: 03/01/19 Encounter Time: 11:30 Subjective: Patient seen and examined for ESRD. Started on dialsysis. SOB improving. No CP or palpitations. No new complaints. No overnight events - Objective Vital Signs & Weight: Vital Signs (12 hours) Temp Pulse Resp BP BP BP Pulse Ox 03/01/19 20:16 80 03/01/19 20:00 97 03/01/19 19:56 98.4 F 80 20 117/67 95 03/01/19 16:16 97 03/01/19 16:00 98 F 72 16 124/61 97 03/01/19 15:08 71 144/66 H 03/01/19 14:00 124/60 Weight Admit Weight 195 lb 4.8 oz Weight 195 lb 4.8 oz I&O: 02/28/19 03/01/19 03/02/19 06:59 06:59 06:59 Intake Total 360 490 Output Total 300 3000 Balance 60 -2510 Result Diagrams: 03/01/19 04:21 03/01/19 04:21 Radiology Reviewed by me: Yes (CXR - reviewed) EKG Reviewed by me: Yes (SR) Hospitalist ROS - Review of Systems Respiratory: reports: SOB with excertion. denies: cough, dry, shortness of breath, hemoptysis, pleuritic pain, sputum, wheezing, other Cardiovascular: denies: chest pain, palpitations, orthopnea, paroxysmal noc. dyspnea, edema, light headedness, other - Medication Medications: Active Medications Generic Name Dose Route Start Last Admin Trade Name Freq PRN Reason Stop Dose Admin Allopurinol 300 mg 03/01/19 09:00 03/01/19 11:25 Zyloprim PO 300 mg DAILY BRIGHT Administration Calcium Acetate 667 mg 03/01/19 08:00 03/01/19 16:40 Phoslo PO 667 mg TID-WM BRIGHT Administration Carvedilol 25 mg 03/01/19 09:00 03/01/19 20:16 Coreg PO 25 mg BID BRIGHT Administration Clonidine 0.3 mg 03/01/19 09:00 03/01/19 20:16 Catapres PO Not Given TID BRIGHT Hydralazine HCl 100 mg 03/01/19 09:00 03/01/19 20:16 Apresoline PO Not Given TID BRIGHT - Exam General Appearance: NAD Neck: supple, no JVD Heart: RRR, no gallops, no rubs Respiratory: CTAB, no wheezes, no rales, no ronchi Gastrointestinal: soft, non-tender, non-distended, normal bowel sounds Extremities: no edema Neurological: no new deficit Psychiatric: normal affect, A&O x 3 Hosp A/P - Plan IMPRESSION Volume overaload/ESRD - started on dialysis this admission Mechanical fall Obesity BMI 33.5 DM2 HTN Anemia of renal disease PLAN: Ambulate Await outpt dialysis setup AM labs Change to inpatient Cont current meds as above
[2019-03-02 06:09] LABS: Anion Gap 12 mmol/L (10-20); BUN (Urea Nitrogen) 65 mg/dL (9.8-20.1); Calc. Creatinine Clearance 22 mL/min (70-130); Calcium 8.8 mg/dL (7.8-10.44); Carbon Dioxide 26 mmol/L (23-31); Chloride 106 mmol/L (98-107); Estimated GFR-MDRD 17; Glucose 111 mg/dL (83-110); Potassium 4.1 mmol/L (3.5-5.1); Sodium 140 mmol/L (136-145)
[2019-03-02] MEDS: Carvedilol 25 MG TAB PO SCH ×2 (08:13→19:59)
[2019-03-02] MEDS: Allopurinol 300 MG TAB PO SCH (08:13)
[2019-03-02] MEDS: hydrALAZINE 25 MG TAB PO SCH ×3 (08:13→19:59)
[2019-03-02] MEDS: Calcium Acetate 667 MG CAP PO SCH ×3 (08:13→17:37)
[2019-03-02] MEDS: cloNIDine 0.3 MG TAB PO SCH ×3 (10:11→19:43)
--- NOTE | 2019-03-02 14:59 | PRG ---
DATE OF SERVICE: 03/02/2019 SUBJECTIVE: A 73-year-old female, being seen for end-stage renal disease. The patient denied any nausea, vomiting, or chest pain. OBJECTIVE: GENERAL: The patient is awake and alert, VITAL SIGNS: Afebrile, pulse 71, breathing 16, and blood pressure 132/64. GENERAL APPEARANCE AND MENTAL STATUS: Fair. HEAD/NECK: Normocephalic. Atraumatic. EYES: EOMI. No deformity. EARS: Clear. No ulcers. NOSE: Intact. No lesions. MOUTH: Clear. No discharge. THROAT: Clear. No exudate. LUNGS: Clear. No crackles. CARDIAC: S1, S2. No rub. ABDOMEN: Benign. Bowel sounds positive. GENITALIA/RECTUM: Castillo absent. BACK/EXTREMITIES: Lower extremities have 4+ edema. NEUROLOGICAL: Alert and motor intact. SKIN: LYMPHATICS: LABORATORY DATA: Reviewed. ASSESSMENT: 1. Stage 6 chronic kidney disease, plan dialysis Monday, , and Monday. 2. Hypertension, stable. 3. Anemia, stable. 4. Medication based on GFR appropriate. 5. Edema, improving. . Job ID: [id number]
--- NOTE | 2019-03-02 17:37 | PDOC.HOSPP ---
- Subjective Encounter Date: 03/02/19 Encounter Time: 10:00 Subjective: Pt seen for followup re; volume overload. feels better, no complaints. - Objective Vital Signs & Weight: Vital Signs (12 hours) Temp Pulse Resp BP BP BP BP 03/02/19 15:45 97.5 F L 74 16 145/75 H 03/02/19 11:46 98.0 F 71 16 132/65 03/02/19 08:15 03/02/19 08:10 98.1 F 73 16 139/71 146/70 H 160/64 H Pulse Ox 03/02/19 15:45 96 03/02/19 11:46 96 03/02/19 08:15 96 03/02/19 08:10 96 Weight Admit Weight 195 lb 4.8 oz Weight 195 lb 4.8 oz I&O: 03/01/19 03/02/19 03/03/19 06:59 06:59 06:59 Intake Total 360 490 Output Total 300 3000 Balance 60 -2510 Result Diagrams: 03/01/19 04:21 03/02/19 05:29 Additional Labs: labs and MARs reviewed by id Hospitalist ROS - Review of Systems Cardiovascular: denies: chest pain, palpitations, orthopnea, paroxysmal noc. dyspnea, edema, light headedness Gastrointestinal: denies: nausea, vomiting, abdominal pain, diarrhea, constipation, melena, hematochezia - Medication Medications: Active Medications Generic Name Dose Route Start Last Admin Trade Name Freq PRN Reason Stop Dose Admin Allopurinol 300 mg 03/01/19 09:00 03/02/19 08:13 Zyloprim PO 300 mg DAILY BRIGHT Administration Calcium Acetate 667 mg 03/01/19 08:00 03/02/19 12:36 Phoslo PO 667 mg TID-WM BRIGHT Administration Carvedilol 25 mg 03/01/19 09:00 03/02/19 08:13 Coreg PO 25 mg BID BRIGHT Administration Clonidine 0.3 mg 03/01/19 09:00 03/02/19 15:48 Catapres PO 0.3 mg TID BRIGHT Administration Hydralazine HCl 100 mg 03/01/19 09:00 03/02/19 15:48 Apresoline PO 100 mg TID BRIGHT Administration - Exam General Appearance: NAD Eye: anicteric sclera ENT: moist mucosa Neck: supple Heart: RRR, no rubs Respiratory: CTAB, no wheezes Gastrointestinal: soft, non-tender Extremities: 2+ LE edema Skin: no lesions Psychiatric: normal affect, normal behavior Hosp A/P (1) Volume overload Code(s): E87.70 - FLUID OVERLOAD, UNSPECIFIED Status: Acute (2) ESRD needing dialysis Code(s): N18.6 - END STAGE RENAL DISEASE; Z99.2 - DEPENDENCE ON RENAL DIALYSIS Status: Acute (3) Gout Code(s): M10.9 - GOUT, UNSPECIFIED Status: Chronic (4) HTN (hypertension) Code(s): I10 - ESSENTIAL (PRIMARY) HYPERTENSION Status: Chronic (5) Gout Code(s): M10.9 - GOUT, UNSPECIFIED Status: Chronic - Plan out of bed/ambulate Pt initiated on hemodialysis, needs dialysis chair. Monito vital signs and titrate antihypertensives as needed. Volume overload improving. Gout stable.
--- NOTE | 2019-03-03 13:23 | PRG ---
DATE OF SERVICE: 03/03/2019 SUBJECTIVE: This is a 73-year-old female being seen for end-stage renal disease. The patient denied any nausea, vomiting, or chest pain. OBJECTIVE: CONSTITUTIONAL: On exam, the patient is awake and alert. VITAL SIGNS: Afebrile, pulse 75, breathing 16, and blood pressure 144/76. GENERAL APPEARANCE AND MENTAL STATUS: Fair. HEAD/NECK: Normocephalic. Atraumatic. EYES: EOMI. No deformity. EARS: Clear. No ulcers. NOSE: Intact. No lesions. MOUTH: Clear. No discharge. THROAT: Clear. No exudate. LUNGS: Clear. No crackles. CARDIAC: S1, S2. No rub. ABDOMEN: Benign. Bowel sounds positive. GENITALIA/RECTUM: Castillo absent. BACK/EXTREMITIES: Edema 0+. NEUROLOGICAL: Alert and motor intact. SKIN: LYMPHATICS: LABORATORY DATA: Hemoglobin 8.5. ASSESSMENT AND PLAN: 1. Stage 6 chronic kidney disease. Plan hemodialysis. 2. Hypertension, stable. 3. Anemia, stable. 4. Medications based on glomerular filtration rate are appropriate. Job ID: [id number]
[2019-03-03] MEDS: hydrALAZINE 25 MG TAB PO SCH ×3 (14:17→20:34)
[2019-03-03] MEDS: Allopurinol 300 MG TAB PO SCH (14:18)
[2019-03-03] MEDS: Calcium Acetate 667 MG CAP PO SCH ×2 (14:18→16:42)
[2019-03-03] MEDS: Carvedilol 25 MG TAB PO SCH ×2 (14:18→20:33)
[2019-03-03] MEDS: cloNIDine 0.3 MG TAB PO SCH ×3 (14:18→20:33)
--- NOTE | 2019-03-03 17:04 | PDOC.HOSPP ---
- Subjective Encounter Date: 03/03/19 Encounter Time: 10:40 Subjective: Pt seen for followup re; ESRD needing dialysis. No complaints. - Objective Vital Signs & Weight: Vital Signs (12 hours) Temp Pulse Resp BP BP BP BP 03/03/19 16:00 98.0 F 75 16 106/62 03/03/19 14:18 174/70 H 03/03/19 14:17 79 174/70 H 03/03/19 08:10 98.1 F 72 16 144/76 H 154/75 H 158/66 H 03/03/19 08:00 Pulse Ox 03/03/19 16:00 95 03/03/19 14:18 03/03/19 14:17 03/03/19 08:10 97 03/03/19 08:00 97 Weight Admit Weight 195 lb 4.8 oz Weight 195 lb 4.8 oz I&O: 03/02/19 03/03/19 03/04/19 06:59 06:59 06:59 Intake Total 490 800 Output Total 3000 Balance -2510 800 Result Diagrams: 03/01/19 04:21 03/02/19 05:29 Additional Labs: Labs and MARs reviewed by nj Hospitalist ROS - Review of Systems Cardiovascular: denies: chest pain, palpitations, orthopnea, paroxysmal noc. dyspnea, edema, light headedness Gastrointestinal: denies: nausea, vomiting, abdominal pain, diarrhea, constipation, melena, hematochezia - Medication Medications: Active Medications Generic Name Dose Route Start Last Admin Trade Name Derickq PRN Reason Stop Dose Admin Allopurinol 300 mg 03/01/19 09:00 03/03/19 14:18 Zyloprim PO 300 mg DAILY BRIGHT Administration Calcium Acetate 667 mg 03/01/19 08:00 03/03/19 16:42 Phoslo PO 667 mg TID-WM BRIGHT Administration Carvedilol 25 mg 03/01/19 09:00 03/03/19 14:18 Coreg PO Not Given BID BRIGHT Clonidine 0.3 mg 03/01/19 09:00 03/03/19 14:18 Catapres PO 0.3 mg TID BRIGHT Administration Hydralazine HCl 100 mg 03/01/19 09:00 03/03/19 14:18 Apresoline PO Not Given TID BRIGHT - Exam General - other findings: Obesity ENT: moist mucosa Neck: supple, no thyromegaly Heart: RRR Respiratory: CTAB Gastrointestinal: soft, non-tender Extremities: 2+ LE edema Skin: no lesions Psychiatric: normal affect, normal behavior Hosp A/P (1) Volume overload Code(s): E87.70 - FLUID OVERLOAD, UNSPECIFIED Status: Acute (2) ESRD needing dialysis Code(s): N18.6 - END STAGE RENAL DISEASE; Z99.2 - DEPENDENCE ON RENAL DIALYSIS Status: Acute (3) Gout Code(s): M10.9 - GOUT, UNSPECIFIED Status: Chronic (4) HTN (hypertension) Code(s): I10 - ESSENTIAL (PRIMARY) HYPERTENSION Status: Chronic (5) Gout Code(s): M10.9 - GOUT, UNSPECIFIED Status: Chronic - Plan out of bed/ambulate Pt initiated on hemodialysis during this admission, awaiting dialysis chair. Monitor vital signs and titrate antihypertensives as needed. Volume overload improving, pt is now asymotomatic. Gout stable, continue allopurinol.
[2019-03-04 07:48] LABS: #Eosinphils 0.1 thou/uL (0.0-0.7); #Lymphocytes 1.1 thou/uL (1.20-3.40); #Monocytes 0.3 thou/uL (0.11-0.59); #Neutrophils 5.5 thou/uL (1.40-6.50); %Basophils 0.3 % (0.0-1.0); %Lymphocytes 15.4 % (21.0-51.0); %Monocytes 4.1 % (0.0-10.0); %Neutrophils 79.2 % (42.0-75.0); Hemoglobin 7.9 g/dL (12.0-16.0); Mean Corpuscular HGB CONC 31.6 g/dL (32.0-36.0); Mean Corpuscular Volume 98.1 fL (78.0-98.0); Mean Platelet Volume 9.8 fL (7.4-10.4); Platelet Count 93 thou/uL (130-400); RBC Distribution Width 17.3 % (11.5-14.5); Red Blood Cell (RBC) Count 2.55 mill/uL (4.20-5.40); White Blood Cell (WBC) Count 6.9 thou/uL (4.8-10.8)
[2019-03-04 08:05] LABS: Anion Gap 14 mmol/L (10-20); BUN (Urea Nitrogen) 46 mg/dL (9.8-20.1); Calc. Creatinine Clearance 23 mL/min (70-130); Carbon Dioxide 28 mmol/L (23-31); Chloride 104 mmol/L (98-107); Estimated GFR-MDRD 18; Glucose 106 mg/dL (83-110); Potassium 3.9 mmol/L (3.5-5.1); Sodium 142 mmol/L (136-145)
[2019-03-04] MEDS: Calcium Acetate 667 MG CAP PO SCH ×3 (08:15→15:35)
[2019-03-04] MEDS: hydrALAZINE 25 MG TAB PO SCH ×3 (08:18→20:54)
[2019-03-04] MEDS: cloNIDine 0.3 MG TAB PO SCH ×3 (08:18→20:53)
[2019-03-04] MEDS: Carvedilol 25 MG TAB PO SCH ×2 (08:18→20:55)
[2019-03-04 08:29] LABS: Hypochromia SLIGHT = 6-15 cells (100X) (0-5/hpf); MDiff Complete? YES; Ovalocytes SLIGHT = 2-5 cells (100X) (0-1/hpf); Platelet Morphology Comment Appears Decreased; Polychromasia SLIGHT = 2-3 cells (100X) (0-2/hpf); Schistocytes SLIGHT = 2-5 cells (100X) (0-1/hpf)
[2019-03-04] MEDS: Allopurinol 300 MG TAB PO SCH (11:57)
--- NOTE | 2019-03-04 16:28 | RAD ---
XR Chest Pa Lat STANDARD HISTORY: Rule out tuberculosis for dialysis COMPARISON: 11/11/2018 FINDINGS: Right-sided Mediport remains in place. The heart size is mildly enlarged but stable. There are small bilateral pleural effusions, larger on the left. No oksana pulmonary edema, pneumothoraces or focal areas of consolidation are seen. IMPRESSION: No evidence of active pulmonary tuberculosis.
--- NOTE | 2019-03-04 16:57 | PRG ---
DATE OF SERVICE: 03/04/2019 SUBJECTIVE: Patient was seen and examined at bedside and overnight events noted. Patient denies any shortness of breath or chest pain or palpitation. No history of nausea or vomiting or diarrhea or fever or chills or cramps. OBJECTIVE: GENERAL: This is a well-built female, in no apparent distress. VITAL SIGNS: Temperature 97.7. Heart rate 80. Respiratory rate 18. Blood pressure 162/70. HEENT: Atraumatic, normocephalic. Oral mucosa is moist. NECK: Supple. CARDIOVASCULAR: S1, S2 heard. Rate and rhythm regular. RESPIRATORY: Clear to auscultation. GASTROINTESTINAL: Abdomen is soft. MUSCULOSKELETAL: No tenderness. No edema. DERMATOLOGIC: No skin rash. NEUROLOGIC: Alert and awake and oriented x3. No focal neurologic deficits. Moving all the extremities. PSYCHIATRIC: Mood and affect normal. LABORATORY DATA: Potassium 3.9, BUN is 46, and creatinine is 3.09. Hemoglobin is 7.9. ASSESSMENT AND PLAN: 1. End-stage renal disease. Continue on hemodialysis as tolerated. 2. Hypertension, stable. 3. Anemia. 4. Edema, controlled. Give a dose of Epogen tomorrow and then continue on dialysis as tolerated. Job ID: [id number]
--- NOTE | 2019-03-04 22:55 | PDOC.HOSPP ---
- Subjective Encounter Date: 03/04/19 Encounter Time: 08:00 Subjective: Patient seen and examined for ESRD. No CP or SOB. Tolerating dialysis. No new complaints. No overnight events - Objective Vital Signs & Weight: Vital Signs (12 hours) Temp Pulse Resp BP BP BP BP 03/04/19 20:54 83 132/64 03/04/19 20:53 132/64 03/04/19 20:00 98.7 F 83 20 134/74 125/72 132/64 03/04/19 15:38 85 162/70 H 03/04/19 12:00 97.7 F 80 18 173/79 H 168/74 H 155/67 H Pulse Ox 03/04/19 20:54 03/04/19 20:53 03/04/19 20:00 96 03/04/19 15:38 03/04/19 12:00 96 Weight Admit Weight 195 lb 4.8 oz Weight 195 lb 4.8 oz I&O: 03/03/19 03/04/19 03/05/19 06:59 06:59 06:59 Intake Total 800 Balance 800 Result Diagrams: 03/04/19 07:35 03/04/19 07:35 Hospitalist ROS - Review of Systems Cardiovascular: denies: chest pain, palpitations, orthopnea, paroxysmal noc. dyspnea, edema, light headedness, other Gastrointestinal: denies: nausea, vomiting, abdominal pain, diarrhea, constipation, melena, hematochezia, other - Medication Medications: Active Medications Generic Name Dose Route Start Last Admin Trade Name Freq PRN Reason Stop Dose Admin Allopurinol 300 mg 03/01/19 09:00 03/04/19 11:57 Zyloprim PO 300 mg DAILY BRIGHT Administration Calcium Acetate 667 mg 03/01/19 08:00 03/04/19 15:35 Phoslo PO 667 mg TID-WM BRIGHT Administration Carvedilol 25 mg 03/01/19 09:00 03/04/19 20:55 Coreg PO 25 mg BID BRIGHT Administration Clonidine 0.3 mg 03/01/19 09:00 03/04/19 20:53 Catapres PO Not Given TID BRIGHT Hydralazine HCl 100 mg 03/01/19 09:00 03/04/19 20:54 Apresoline PO 100 mg TID BRIGHT Administration - Exam General Appearance: NAD Neck: supple, no JVD Heart: RRR, no rubs Respiratory: CTAB, no rales Gastrointestinal: soft, non-tender, normal bowel sounds Extremities: no edema Hosp A/P - Plan DVT proph w/SCDs IMPRESSION Volume overaload/ESRD - started on dialysis this admission Mechanical fall Obesity BMI 33.5 DM2 HTN Anemia of renal disease PLAN: Await outpt dialysis setup Cont current meds as above Cont sliding scale
[2019-03-05 08:14] VITALS: TEMP 98
[2019-03-05] MEDS: Calcium Acetate 667 MG CAP PO SCH ×3 (08:42→16:28)
[2019-03-05] MEDS: cloNIDine 0.3 MG TAB PO SCH ×2 (08:42→16:28)
[2019-03-05] MEDS: Allopurinol 300 MG TAB PO SCH (08:42)
[2019-03-05] MEDS: hydrALAZINE 25 MG TAB PO SCH ×2 (08:42→16:25)
[2019-03-05] MEDS: Carvedilol 25 MG TAB PO SCH (08:42)
[2019-03-05] MEDS ORDERED: EPOETIN ALFA-EPBX (ESRD) 10,000 UNIT/ML VIAL IVP SCH (09:00)
--- NOTE | 2019-03-05 14:30 | DIS ---
DATE OF ADMISSION: 03/01/2019 DATE OF DISCHARGE: 03/05/2019 DISCHARGE DISPOSITION: Home. FOLLOWUP: 1. Follow up with primary care physician at [facility] in 1 week. 2. Follow up with Nephrology, Dr. Godwin. ALLERGIES: NO KNOWN DRUG ALLERGIES. OUTPATIENT DIALYSIS HAS BEEN ARRANGED. DISCHARGE MEDICATIONS: Same as admission medications except for Lasix and potassium, which were discontinued. The patient was seen and examined on the day of discharge. Denies any new complaints. No chest pain, shortness of breath, or palpitations reported. BRIEF HOSPITAL COURSE: The patient is a 73-year-old female with CKD, presented to the hospital with mechanical fall. Workup at [facility] was consistent with volume overload. She was transferred to this facility. She underwent CT scans of the cervical spine and brain, which were negative for acute findings. She did not have any neuro deficit. She was evaluated by Nephrology, Dr. Grant, who recommended setting up outpatient dialysis. She will follow up with [facility] in [place] on (07 March). She underwent hemodialysis today. SIGNIFICANT LABORATORY DATA: Creatinine yesterday was 3.09. Hemoglobin yesterday was 7.9 with platelet count of 93. CBC after 1 week is recommended, primary care physician advised to follow. FINAL DIAGNOSES: 1. Acute kidney injury on chronic kidney disease, stage 5/end-stage renal disease, started on hemodialysis this admission. 2. Status post mechanical fall without any focal neurologic deficit. 3. Obesity with a BMI of 33.2. 4. Diabetes mellitus, type 2. 5. Hypertension. 6. Anemia secondary to renal disease. 7. Thrombocytopenia of unclear etiology. 8. Macrocytosis. Plan of care was discussed with the patient in detail. She stated understanding. Job ID: [id number]
[2019-03-05 16:10] VITALS: BP 179/68
--- NOTE | 2019-03-05 19:05 | PRG ---
DATE OF SERVICE: 03/05/2019 SUBJECTIVE: Patient was seen and examined at bedside and overnight events noted. Patient denies any shortness of breath or chest pain or palpitation. No history of nausea or vomiting or diarrhea or fever or chills or cramps. OBJECTIVE: GENERAL: This is a well-built female, in no apparent distress. VITAL SIGNS: Temperature . Heart rate 77. Respiratory rate 17. Blood pressure 179/68. HEENT: Atraumatic, normocephalic. Oral mucosa is moist NECK: Supple. CARDIOVASCULAR: S1, S2 heard. Rate and rhythm regular. RESPIRATORY: Clear to auscultation. GASTROINTESTINAL: Abdomen is soft. MUSCULOSKELETAL: No tenderness. No edema. DERMATOLOGIC: No skin rash. NEUROLOGIC: Alert and awake and oriented X3. No focal neurologic deficits. Moving all the extremities. PSYCHIATRIC: Mood and affect normal. LABORATORY DATA: No labs done today. ASSESSMENT AND PLAN: 1. End-stage renal disease. Continue dialysis on Monday, , and Monday. The patient has accepted for TTS and okay to discharge home. 2. Hypertension, stable. 3. Anemia. 4. Edema, controlled. Dr. Lincoln to follow up her up at dialysis clinic. Job ID: [id number]
== END 2019-03-05 16:48 | disposition home or self-care (01) | DRG 682 ==
LOC: ERS 12:51 → 2SW 18:22 → OBSVTOIN 03-01 12:34 → T4-B 03-01 15:46
PROVIDERS: ADMIT Internal Medicine; ATTEND Internal Medicine
DX: I12.0 Hypertensive chronic kidney disease with stage 5 chronic kidney disease or end stage renal disease (principal); N18.6 End stage renal disease; N17.9 Acute kidney failure, unspecified; M10.9 Gout, unspecified; S00.03XA Contusion of scalp, initial encounter; W19.XXXA Unspecified fall, initial encounter; E11.22 Type 2 diabetes mellitus with diabetic chronic kidney disease; E66.9 Obesity, unspecified; D63.1 Anemia in chronic kidney disease; D69.6 Thrombocytopenia, unspecified; D75.89 Other specified diseases of blood and blood-forming organs; Z85.3 Personal history of malignant neoplasm of breast; Z92.21 Personal history of antineoplastic chemotherapy; Z92.3 Personal history of irradiation; Z90.12 Acquired absence of left breast and nipple; Z68.33 Body mass index [BMI] 33.0-33.9, adult
CPT/HCPCS: 36415; 70450; 71046; 72125; 80048; 85025; 86704; 86706; 86803; 87340; 90935; 93005; G0257; Q5105

== ENCOUNTER 2023-05-23 02:11 | Inpatient (IN) | payer MEDICARE ==
[2023-05-23] MEDS ORDERED: Ondansetron ODT 4 MG TAB PO PRN (03:54)
[2023-05-23] MEDS ORDERED: Ondansetron PF 4 MG/2 ML Vial IVP PRN (03:54)
[2023-05-23 05:39] LABS: #Monocytes 1.6 thou/uL (0.11-0.59); #Neutrophils 7.9 thou/uL (1.40-6.50); %Basophils 0.2 % (0.0-1.0); %Eosinophils 0.2 % (0.0-10.0); %Lymphocytes 18.4 % (21.0-51.0); %Monocytes 13.2 % (0.0-10.0); %Neutrophils 67.5 % (42.0-75.0); Hematocrit 34.6 % (36.0-47.0); Hemoglobin 10.8 g/dL (12.0-16.0); Mean Corpuscular HGB CONC 31.2 g/dL (32.0-36.0); Mean Corpuscular Hemoglobin 30.9 pg (27.0-31.0); Mean Corpuscular Volume 99.1 fl (78.0-98.0); Mean Platelet Volume 9.7 fL (7.4-10.4); Platelet Count 228 10x3/uL (130-400); RBC Distribution Width 16.3 % (11.5-14.5); Red Blood Cell (RBC) Count 3.49 mill/uL (4.20-5.40); White Blood Cell (WBC) Count 11.7 10x3/uL (4.8-10.8)
[2023-05-23 06:12] LABS: Anion Gap 20 mmol/L (10-20); BUN (Urea Nitrogen) 36 mg/dL (9.8-20.1); Calc. Creatinine Clearance 0 mL/min (70-130); Calcium 9.6 mg/dL (7.8-10.44); Carbon Dioxide 24 mmol/L (23-31); Chloride 97 mmol/L (98-107); Estimated GFR 5; Glucose 87 mg/dL (83-110); Sodium 137 mmol/L (136-145)
[2023-05-23] MEDS: Famotidine 20 MG TAB PO SCH (07:37)
[2023-05-23] MEDS ORDERED: Lidocaine 1% (PF) 30 ML VIAL NERVE BLCK SCH (07:45)
[2023-05-23] MEDS ORDERED: Famotidine/PF 20 mg/2ml Vial SLOW IVP SCH (09:00)
[2023-05-23] MEDS ORDERED: FLU VACC QS2023(65UP)/MF59C/PF 60 MCG/0.5 ML SYRINGE IM ONE (09:00)
[2023-05-23] MEDS ORDERED: Morphine 4 MG/ML VIAL SLOW IVP PRN (11:23)
[2023-05-23] MEDS: Acetaminophen 325 MG TAB PO PRN (11:23)
[2023-05-23 11:41] LABS: HBSAB Concentration Less than 8.00 mIU/mL; HBSAg Index 0.23 S/CO (0-0.99); Hep B Core Total Ab Non-Reactive (NonReactive); Hep B Core Total Index 0.08 S/CO (0-0.79); Hep B Surf AB Non-Reactive (NonReactive); Hep B Surf Ag Non-Reactive S/CO (NonReactive); Hep C IgG Ab Non-Reactive S/CO (NonReactive); Hep C Index 0.14 S/CO (0-0.79)
[2023-05-23] MEDS ORDERED: Sodium Chloride 0.9% 250 ML IV SCH (11:45)
[2023-05-23] MEDS: Morphine 2 MG/ML VIAL SLOW IVP PRN (11:50)
[2023-05-23] MEDS ORDERED: NOREPINEPHRINE 8 MG/250 ML-D5W 250 ML IVPB PRN (12:43)
[2023-05-23] MEDS ORDERED: Electrolyte Replacement Protocol 1 EACH IVPB ONE (12:43)
[2023-05-23] MEDS: cefTRIAXone\\ROCEPHIN 1 GM in Sodium Chloride 0.9% 100 ML IVPB SCH (13:03)
[2023-05-23] MEDS ORDERED: dilTIAZem 125 MG, Admixture Fee 1 EACH in Sodium Chloride 0.9% 100 ML IVPB SCH (13:30)
[2023-05-23 13:43] LABS: Lactic Acid 1.4 mmol/L (0.5-2.2)
[2023-05-23] MEDS ORDERED: Phenylephrine 40 MG/NS 250 ML 40 MG in Premix 1 BAG IVPB SCH (13:45)
[2023-05-23] MEDS ORDERED: Sodium Chloride 0.9% 500 ML IV SCH (13:45)
[2023-05-23 13:51] LABS: Troponin I 0.068 ng/mL (< 0.028)
[2023-05-23] MEDS ORDERED: Amiodarone 450 MG, Admixture Fee 1 EACH in Dextrose 5% in Water 250 ML IVPB SCH (14:00)
[2023-05-23] MEDS ORDERED: Amiodarone 150 MG, Admixture Fee 1 EACH in Dextrose 5% in Water 100 ML IVPB SCH (14:00)
[2023-05-23] MEDS ORDERED: Metoprolol Tartrate 5 MG/5 ML VIAL IVP PRN (14:58)
[2023-05-23] MEDS: Heparin 10,000 UNITS/ 10 ML VIAL SLOW IVP SCH (20:08)
[2023-05-23 20:26] LABS: Hematocrit 29.7 % (36.0-47.0); Hemoglobin 9.5 g/dL (12.0-16.0); Platelet Count 261 10x3/uL (130-400)
[2023-05-23] MEDS: Heparin 25,000 units/D5W 500 ML IV SCH (20:27)
[2023-05-23] MEDS ORDERED: Heparin 5,000 UNITS/ML VIAL SC SCH (21:00)
[2023-05-24 04:23] LABS: #Eosinphils 0.1 thou/uL (0.0-0.7); #Monocytes 1.1 thou/uL (0.11-0.59); #Neutrophils 5.3 thou/uL (1.40-6.50); %Basophils 0.4 % (0.0-1.0); %Eosinophils 1.5 % (0.0-10.0); %Lymphocytes 23.9 % (21.0-51.0); %Monocytes 12.3 % (0.0-10.0); %Neutrophils 61.5 % (42.0-75.0); Hematocrit 28.1 % (36.0-47.0); Hemoglobin 8.9 g/dL (12.0-16.0); Mean Corpuscular HGB CONC 31.7 g/dL (32.0-36.0); Mean Corpuscular Hemoglobin 30.6 pg (27.0-31.0); Mean Corpuscular Volume 96.6 fl (78.0-98.0); Mean Platelet Volume 9.8 fL (7.4-10.4); Platelet Count 212 10x3/uL (130-400); RBC Distribution Width 15.9 % (11.5-14.5); Red Blood Cell (RBC) Count 2.91 mill/uL (4.20-5.40); White Blood Cell (WBC) Count 8.6 10x3/uL (4.8-10.8)
[2023-05-24 04:51] LABS: Anion Gap 20 mmol/L (10-20); BUN (Urea Nitrogen) 53 mg/dL (9.8-20.1); Calc. Creatinine Clearance 7 mL/min (70-130); Calcium 8.8 mg/dL (7.8-10.44); Carbon Dioxide 21 mmol/L (23-31); Chloride 101 mmol/L (98-107); Estimated GFR 4; Glucose 103 mg/dL (83-110); Potassium 4.3 mmol/L (3.5-5.1); Sodium 138 mmol/L (136-145)
[2023-05-24 08:09] LABS: Cardiac Risk 2.2 (Less than 4.5)
[2023-05-24] MEDS: Famotidine 20 MG TAB PO SCH (08:23)
[2023-05-24] MEDS ORDERED: Heparin 10,000 UNITS/ 10 ML VIAL ONE (09:32)
[2023-05-24] MEDS: cefTRIAXone\\ROCEPHIN 1 GM in Sodium Chloride 0.9% 100 ML IVPB SCH (11:08)
[2023-05-24] MEDS: Acetaminophen 325 MG TAB PO PRN (13:07)
[2023-05-24] MEDS: Epoetin (ESRD) 10,000 UNITS/ML VIAL IVP SCH (13:41)
[2023-05-24] MEDS: Morphine 2 MG/ML VIAL SLOW IVP PRN (19:51)
[2023-05-24] MEDS ORDERED: Amiodarone 150 MG, Admixture Fee 1 EACH in Dextrose 5% in Water 100 ML IVPB SCH (20:45)
[2023-05-24] MEDS: Heparin 10,000 UNITS/ 10 ML VIAL SLOW IVP SCH (21:11)
[2023-05-24] MEDS: Heparin 25,000 units/D5W 500 ML IV SCH (23:20)
[2023-05-25 02:26] LABS: #Eosinphils 0.1 thou/uL (0.0-0.7); #Monocytes 0.8 thou/uL (0.11-0.59); #Neutrophils 5.7 thou/uL (1.40-6.50); %Basophils 0.2 % (0.0-1.0); %Lymphocytes 18.9 % (21.0-51.0); %Monocytes 9.5 % (0.0-10.0); %Neutrophils 69.9 % (42.0-75.0); Hematocrit 26.6 % (36.0-47.0); Hemoglobin 8.3 g/dL (12.0-16.0); Mean Corpuscular HGB CONC 31.2 g/dL (32.0-36.0); Mean Corpuscular Hemoglobin 30.4 pg (27.0-31.0); Mean Corpuscular Volume 97.4 fl (78.0-98.0); Platelet Count 190 10x3/uL (130-400); RBC Distribution Width 15.9 % (11.5-14.5); Red Blood Cell (RBC) Count 2.73 mill/uL (4.20-5.40); White Blood Cell (WBC) Count 8.2 10x3/uL (4.8-10.8)
[2023-05-25 04:33] LABS: Anion Gap 17 mmol/L (10-20); BUN (Urea Nitrogen) 21 mg/dL (9.8-20.1); Carbon Dioxide 25 mmol/L (23-31); Chloride 99 mmol/L (98-107); Potassium 3.9 mmol/L (3.5-5.1); Sodium 137 mmol/L (136-145)
[2023-05-25 04:34] LABS: Albumin 2.9 g/dL (3.4-4.8); Bilirubin, Total 0.5 mg/dL (0.2-1.2); Calc. Creatinine Clearance 11 mL/min (70-130); Calcium 8.6 mg/dL (7.6-10.4); Estimated GFR 8; Globulin 3.1 g/dL (2.4-3.5); Glucose 106 mg/dL (83-110)
[2023-05-25 04:35] LABS: ALT (SGPT) 10 U/L (8-55); AST (SGOT) 17 U/L (5-34); Alkaline Phosphatase 80 U/L (40-110)
[2023-05-25] MEDS: Morphine 2 MG/ML VIAL SLOW IVP PRN (05:06)
[2023-05-25] MEDS: Famotidine 20 MG TAB PO SCH (09:08)
[2023-05-25] MEDS: Amiodarone 200 MG TAB PO SCH ×2 (09:08→21:01)
[2023-05-25] MEDS ORDERED: Iopamidol-370 76% 500 ML MDV (1 ML CHARGE) ONE (12:52)
[2023-05-25] MEDS: cefTRIAXone\\ROCEPHIN 1 GM in Sodium Chloride 0.9% 100 ML IVPB SCH (13:15)
[2023-05-25] MEDS ORDERED: Piperacillin/Tazobactam 3.375 GM in Sodium Chloride 0.9% 100 ML IVPB SCH ×2 (16:00→16:15)
[2023-05-25] MEDS: Piperacillin/Tazobactam 3.375 GM in Sodium Chloride 0.9% 100 ML IVPB SCH (21:02)
[2023-05-25] MEDS: Heparin 25,000 units/D5W 500 ML IV SCH (21:12)
[2023-05-26 04:11] LABS: #Eosinphils 0.1 thou/uL (0.0-0.7); #Monocytes 0.8 thou/uL (0.11-0.59); #Neutrophils 6.7 thou/uL (1.40-6.50); %Basophils 0.3 % (0.0-1.0); %Eosinophils 1.4 % (0.0-10.0); %Neutrophils 73.5 % (42.0-75.0); Hematocrit 26.2 % (36.0-47.0); Hemoglobin 8.4 g/dL (12.0-16.0); Mean Corpuscular HGB CONC 32.1 g/dL (32.0-36.0); Mean Corpuscular Hemoglobin 30.9 pg (27.0-31.0); Mean Corpuscular Volume 96.3 fl (78.0-98.0); Mean Platelet Volume 10.1 fL (7.4-10.4); Platelet Count 230 10x3/uL (130-400); RBC Distribution Width 15.9 % (11.5-14.5); Red Blood Cell (RBC) Count 2.72 mill/uL (4.20-5.40); White Blood Cell (WBC) Count 9.1 10x3/uL (4.8-10.8)
[2023-05-26 04:36] LABS: Anion Gap 18 mmol/L (10-20); BUN (Urea Nitrogen) 30 mg/dL (9.8-20.1); Calc. Creatinine Clearance 9 mL/min (70-130); Calcium 8.9 mg/dL (7.8-10.44); Carbon Dioxide 25 mmol/L (23-31); Chloride 96 mmol/L (98-107); Estimated GFR 6; Glucose 106 mg/dL (83-110); Potassium 4.1 mmol/L (3.5-5.1); Sodium 135 mmol/L (136-145)
[2023-05-26] MEDS: Amiodarone 200 MG TAB PO SCH ×2 (08:37→20:59)
[2023-05-26] MEDS: Apixaban 2.5 MG TAB PO SCH ×2 (08:37→20:59)
[2023-05-26] MEDS: Piperacillin/Tazobactam 3.375 GM in Sodium Chloride 0.9% 100 ML IVPB SCH (08:38)
[2023-05-26] MEDS ORDERED: Heparin 10,000 UNITS/ 10 ML VIAL ONE (10:32)
[2023-05-26] MEDS: Epoetin (ESRD) 10,000 UNITS/ML VIAL IVP SCH (11:46)
[2023-05-27 06:27] LABS: #Monocytes 1.1 thou/uL (0.11-0.59); #Neutrophils 8.4 thou/uL (1.40-6.50); %Basophils 0.2 % (0.0-1.0); %Eosinophils 0.4 % (0.0-10.0); %Lymphocytes 10.1 % (21.0-51.0); %Monocytes 10.4 % (0.0-10.0); %Neutrophils 78.2 % (42.0-75.0); Hematocrit 26.5 % (36.0-47.0); Hemoglobin 8.5 g/dL (12.0-16.0); Mean Corpuscular HGB CONC 32.1 g/dL (32.0-36.0); Mean Corpuscular Hemoglobin 31.1 pg (27.0-31.0); Mean Corpuscular Volume 97.1 fl (78.0-98.0); Mean Platelet Volume 10.2 fL (7.4-10.4); Platelet Count 255 10x3/uL (130-400); RBC Distribution Width 16.2 % (11.5-14.5); Red Blood Cell (RBC) Count 2.73 mill/uL (4.20-5.40); White Blood Cell (WBC) Count 10.7 10x3/uL (4.8-10.8)
[2023-05-27 06:54] LABS: Anion Gap 15 mmol/L (10-20); BUN (Urea Nitrogen) 16 mg/dL (9.8-20.1); Calc. Creatinine Clearance 12 mL/min (70-130); Calcium 9.4 mg/dL (7.8-10.44); Carbon Dioxide 27 mmol/L (23-31); Chloride 99 mmol/L (98-107); Estimated GFR 9; Glucose 123 mg/dL (83-110); Potassium 3.8 mmol/L (3.5-5.1); Sodium 137 mmol/L (136-145)
[2023-05-27 08:04] VITALS: BP 115/66; TEMP 98.8
[2023-05-27] MEDS ORDERED: Famotidine 20 MG TAB PO SCH (09:00)
[2023-05-27] MEDS: Apixaban 2.5 MG TAB PO SCH (10:12)
[2023-05-27] MEDS: Amiodarone 200 MG TAB PO SCH (10:12)
== END 2023-05-27 11:55 | disposition home or self-care (01) | DRG 308 ==
LOC: SURG B 02:41 → OBSVTOIN 12:43 → CCU 12:49 → 2SE 05-26 10:30
PROVIDERS: ADMIT Student in an Organized Health Care Education/Training Program; ATTEND Internal Medicine Critical Care Medicine
PROC: 3E033XZ Introduction of Vasopressor into Peripheral Vein, Percutaneous Approach (ICD-10-PCS; principal; 2023-05-23)
PROC: 3E03329 Introduction of Other Anti-infective into Peripheral Vein, Percutaneous Approach (ICD-10-PCS; 2023-05-23)
DX: I48.0 Paroxysmal atrial fibrillation (principal); N18.6 End stage renal disease; R57.0 Cardiogenic shock; M00.9 Pyogenic arthritis, unspecified; M31.9 Necrotizing vasculopathy, unspecified; M87.012 Idiopathic aseptic necrosis of left shoulder; I12.0 Hypertensive chronic kidney disease with stage 5 chronic kidney disease or end stage renal disease; I27.20 Pulmonary hypertension, unspecified; Z89.511 Acquired absence of right leg below knee; Z79.899 Other long term (current) drug therapy; Z98.890 Other specified postprocedural states; D63.1 Anemia in chronic kidney disease
CPT/HCPCS: 36415; 36416; 71045; 71275; 80048; 80053; 80061; 82533; 83605; 84145; 84443; 84484; 84550; 85025; 85730; 86140; 86704; 87040; 93005; 93010; 93306; 96374; 96375; G0378; J0282; J0696; J1644; J2001; J2272; J2543; J3490; J7030; J7070; Q4081; Q9967; S0028